=== PATIENT | female | born 2005 | race Caucasian/White ===

== ENCOUNTER 2025-04-28 09:04 | Outpatient (CLI) | payer OTHER, SELFPAY | END 2025-04-28 09:05 | disposition home or self-care (01) | LOC: NFLDREF 05-03 04:24 | PROVIDERS: Visit Provider Midwife | DX: Z34.93 Encounter for supervision of normal pregnancy, unspecified, third trimester (principal); Z3A.28 28 weeks gestation of pregnancy | CPT/HCPCS: 86592 ==

== ENCOUNTER 2025-06-19 10:56 | Outpatient (CLI) | payer OTHER, SELFPAY ==
--- NOTE | 2025-06-19 10:59 | W.PM.LAC.MC ---
Consult Note - Mom Date of Visit Date of visit: 06/19/25 Reason for consultation: Other ( consultation, EDC 07/18/25) Visit Code: Visit Patient's Information Phone number: [phone] : 1 Allergies No Known Drug Allergies Allergy (Verified 06/09/25 18:03) Mother's Medical History: Medical History (Updated 05/26/25 @ 18:52 by Yeimy Young CNM) History of cardiac murmur as a child ?Z87.898 - Personal history of other specified conditions (ICD-10) Work Plans: will return to work after 12 weeks Delivery Information Delivery type: Vaginal (planning a vaginal delivery) Past Experience Past Experience: No Assessments/Interventions Assessments/Interventions: Otto is here for a consultation to prepare for feeding her baby. She would like general information on , getting it started well, and questions answered re: pumping and bottling when she returns to work. topics discussed and questions answered: Mantilla Hour after and getting started with Importance of latch for milk transfer and less/minimal nipple pain What to expect the first few days of feeding Baby hunger cues What the feeding routine looks like Nipple care milk expression: pumping vs. hand expression Skin to skin Breast pump information Touched on returning to work Also discussed flat nipples and potential use of nipple shield Education provided: Early feeding cues to maximize timing of latching, Supply/demand nature of milk supply, Need for frequent stimulation/milk removal, Alternative feeding methods (SNS, cup, finger feeding, bottling), Use of nipple shield and Pumping for milk management Handouts Provided: colostrum expression How to pump more milk from the [employer] website Follow-Up Suggested follow up: Appointment as needed Time Spent Time spent with patient (min): 45 Meds Home Medications and Allergies Home Medications ?Medication ?Instructions ?Recorded ?Confirmed ?Type azelaic acid 15 % topical gel 1 applic topical BID 03/31/25 06/09/25 History vits 168-iron 27 mg-folic cap PO 03/31/25 06/09/25 History acid 800 mcg-omega3 235 mg capsule (One-A-Day -1) sulfacetamide sodium 8 %-sulfur 4 1 applic topical BID 03/31/25 06/09/25 History % topical cleanser Allergies Allergy/AdvReac Type Severity Reaction Status Date / Time No Known Drug Allergies Allergy Verified 06/09/25 18:03
== END 2025-06-19 10:57 | disposition home or self-care (01) ==
PROVIDERS: Visit Provider Obstetrics & Gynecology
DX: Z39.1 Encounter for care and examination of lactating mother (principal)
CPT/HCPCS: G0463

== ENCOUNTER 2025-06-23 19:24 | Outpatient (CLI) | payer OTHER, SELFPAY ==
[2025-06-24 22:03] LABS: Strep B DNA Probe Negative (Negative)
[2025-06-24 22:35] LABS: Strep B Susceptibility Needed? No
== END 2025-06-23 19:25 | disposition home or self-care (01) ==
LOC: NFLDREF 19:24
PROVIDERS: Visit Provider Advanced Practice Midwife
DX: Z34.93 Encounter for supervision of normal pregnancy, unspecified, third trimester (principal)
CPT/HCPCS: 87081; 87653

== ENCOUNTER 2025-07-09 14:38 | Inpatient (IN) | payer OTHER, SELFPAY ==
[2025-07-09] VITALS (18 sets, daily range): BP systolic 100–132; BP diastolic 59–79; PULSE 89–121; RESP 17–25; TEMP 36.8–37; O2SAT 97–98; BMI 34.0
[2025-07-09 12:21] LABS: Trichomonas No Trichomonas Seen (None Seen)
[2025-07-09 12:33] LABS: Amnisure Rom* Negative
--- NOTE | 2025-07-09 15:06 | W.PM.LDBA ---
Subjective History of Present Illness Date Seen: 07/09/25 Narrative: Otto is being admitted to Labor and Delivery for labor. She is a 20 year old at 38.5 weeks gestation. Her full history and physical was dictated by Sarika Young CNM on 06/30/25. Please see this for details. She reports contractions off and on since her membrane sweep on Sunday. Today had more mucus discharge and was concerned for decreased movement so came in for evaluation. Fetus has been active since arrival and she continued to contract while here with cervical change. Specific Issues/Plans G1 : Sanjay Francis from [facility] at 24.3 weeks gestation H&P complete 06/30/2025 by GABRIELLA Larry # Hx of heart murmur as a child, resolved Transfer from [facility] Labs 12/19/2024 Blood type: A+, antibody screen negative.??? Hgb: 12.6??? Platelets: 304??? Rubella: Non-immune?Offer PP?? Varicella: Non-immune?Offer PP RPR: non-reactive??? HBsAg: non-reactive??? Hep C: negative? HIV: negative??? UC: negative? HgbA1c: 4.7 Hemoglobin electrophoresis: Normal GC/Chlamydia: negative/negative??? Pap (01/22/2025): NILM??? Genetic screening: Panorama, Low risk? 1st trimester (12/17/2024): SIUP, tiny subchorionic hematoma measuring up to 1.3 cm. Measuring 8.6 with SAMIR 07/23/2025.?? Anatomy scan (02/25/2025): Incomplete survey of kidneys and spine. Otherwise Normal anatomy. EFW 68.9%ile. Anterior placenta, no previa. Follow-up for missing anatomy (03/26/2025): SIUP at 23.5; Normal spine and Kidney views. COVID: initial series, one booster, declined booster today. declined 06/23/2025 Flu: declined 06/23/2025 TDAP: 05/13/2025 RSV: 05/26/2025 32wk Mental Health: 05/26/2025 PHQ9=2 GAD7=0 OB - Problem Based A/P Additional Plan (1) 38 weeks gestation of : Status: Acute (2) Pain during labor: Status: Acute Plan Assessment:?? at 38.5 weeks gestation?? GBS negative? Patient is coping well with challenges of labor.?? Labor type: Spontaneous, Early labor? Category 1 FHR pattern.? complicated by: no OB problems hx of heart murmur as child, resolved Plan:?? ?Admit to L & D? IV access: NA Monitoring per policy: intermittent? Candidate for analgesia of choice.? Planning unmedicated labor for pain management Desires waterbirth.? Consent signed and Hep C negative Expectant management at this time ? Patient encouraged to reposition and ambulate to promote physiologic labor and . Anticipate ? Delivery/Labor/Induction Plan Plan: expectant management OB Exam Physical Exam Vital signs: Temp Pulse Resp BP Pulse Ox 98.5 F 121 H 24 132/75 97 07/09/25 14:00 07/09/25 14:01 07/09/25 14:00 07/09/25 14:01 07/09/25 14:01 Narrative: Vitals Reviewed Constitutional:? Alert and oriented x3 HEENT:? Normocephalic, atraumatic Neck:? Supple Lungs:? Clear to auscultation bilaterally Heart:? Regular rate and rhythm, no murmur, rub or gallop Abdomen:? Soft, nontender, and gravid. Vertex by Sebastien's, confirmed with cervical exam. Extremities:? No edema or erythema Cervix: 4.5 cm/90%/0 station/vertex per RN NST: 150 bpm/moderate variability/+accelerations/-decelerations/ strong contractions, Q 3-4 minutes Detailed Labor and Delivery Exam Patient Gravid: yes Fetus (Single) Amniotic Membrane Status: intact
--- NOTE | 2025-07-09 22:24 | W.PM.OB.MED ---
DS: Providers Provider Date Seen: 07/09/25 Date of admission: 07/09/25 14:38 Primary care physician: Not a Local Provider Admitting Clinician: Pratik Daugherty CNM Attending Physician on discharge: Pratik Daugherty CNM Date of Discharge: 07/09/25 DS: Diagnosis Discharge Diagnosis (1) 38 weeks gestation of : Status: Acute (2) Pain during labor: Status: Acute Discharge Plan Discharge Disposition: Home, Self-Care Date of Admission: 07/09/25 14:38 Attending Provider on Discharge: Pratik Daugherty Primary Care Provider: Provider,Not a Local Condition: Stable Anticipated Discharge Date/Time: 07/09/25 22:23 Discharge Medications: Continued azelaic acid 15 % gel 1 applic topical BID One-A-Day -1 27 mg iron- 800 mcg-235 mg capsule PO sulfacetamide sodium-sulfur 8-4 % cleanser 1 applic topical BID Rx Instructions: lather on wet skin; leave on for 10-20 seconds; rinse Discharge Orders: Discharge Order (Routine); Ordered 07/09/25 Ordered By: Pratik Daugherty Patient Education: OB Undelivered at 35 weeks IUP or more Additional Instructions: Keep routine OB appointment as scheduled Activity Level: Activity as Tolerated Discharge Diet: Regular Follow Up Appointments: [facility] [Provider Group] Provider,Not a Local [Primary Care Provider, Family Practice] Forms: [email or web address] Info Instructions Discharge Comments: Patient was discharged in stable condition. Hospital Course Course Hospital Course: Otto is a 20 year old at 38.5 weeks gestation who was admitted after making cervical change and thought to be in labor. She has made no further cervical change since admission and her contractions have decreased in intensity and frequency. She appears comfortable in bed is grimacing with some contractions but reports she is not as uncomfortable as when we originally admitted her. We discussed that she is likely having prodromal labor and recommended she go home at this time until contractions increase in intensity and frequency again. She was offered morphine and Vistaril for rest/pain. She declines morphine but is agreeable to Vistaril for help with sleep. Reviewed labor signs and reasons to return to the unit. Her is present and supportive. Labs Labs: Laboratory Tests 07/09/25 07/09/25 Range/Units 12:04 11:57 Membrane Rupture Negative Vaginal Trichomonas No Trichomonas Seen (None Seen) Vaginal Yeast No Yeast Seen (None Seen) Vaginal Clue Cells No Clue Cells Seen (None Seen) OB Problem List Additional Plan (1) 38 weeks gestation of : Status: Acute (2) Pain during labor: Status: Acute Plan at 38.5 weeks Prodromal labor Discharge home with Vistaril for sleep Return for routine OB visit in clinic or if labor, ROM, concerns with vaginal bleeding or decreased movement. DS: Summary Vital Signs Vital Signs: Vital Signs Temp Pulse Resp BP Pulse Ox 07/09/25 21:35 97 07/09/25 21:34 101 H 123/77 07/09/25 21:33 98.3 F 25 H 07/09/25 20:42 98 100/59 L 07/09/25 20:41 97 07/09/25 19:43 98.3 F 103 H 20 100/61 07/09/25 19:42 98 07/09/25 18:41 98.5 F 18 98 07/09/25 18:40 100 127/79 07/09/25 18:03 97 07/09/25 17:29 98.3 F 96 17 121/73 07/09/25 17:28 98 07/09/25 16:24 116 H 125/76 97 07/09/25 15:32 98.5 F 121 H 24 131/79 07/09/25 15:31 97 07/09/25 14:01 121 H 132/75 97 07/09/25 14:00 98.5 F 24 07/09/25 11:18 98.6 F 97 17 112/72 98 Discharge Examination General appearance: alert and in no apparent distress
--- NOTE | 2025-07-21 19:13 | PC.OBNST ---
NST Note NST Note Start: 07/09/25 11:11 Freq: ONCE Status: Cancelled Protocol: Document 07/09/25 23:30 VMM (Rec: 07/21/25 19:13 VMM [id number]) NST Note 1 Para (# of births) 0 EDC 07/18/25 Gestational Age In 40 Weeks & 3 Days Weeks & Days Patient Presented Contractions/cramping,Decreased movement with Complaint(s) of Other Complaints Patient came to the center with complaints of frequent contractions and decreased movement. The patient was negative for rupture. A reactive tracing was confirmed, and the patient was observed for labor. Patient was sent home with education regarding precautions to return to the center. Patient was discharged by direction of Gonzalez Daugherty CNM. Reactive Yes Appropriate for Yes Gestational Age FELICIA Bates, RN Date 07/09/25 Reactive Yes Appropriate for Yes Gestational Age FELICIA Barlow RNC Date 07/09/25 OB NST charge Yes Complete NST Note Yes via Write Note The provider's electronic signature indicates the NST is reactive/appropriate for gestational age. *Note to provider: If an addendum is required, open the patient's chart and click on the note under the Nurse/Allied Health tab.
== END 2025-07-09 22:32 | disposition home or self-care (01) | DRG 566 ==
LOC: OB OUT 14:39 → OB 14:39
PROVIDERS: Admitting Provider Advanced Practice Midwife; Visit Provider Advanced Practice Midwife
DX: O36.8130 Decreased fetal movements, third trimester, not applicable or unspecified (principal); O62.0 Primary inadequate contractions; Z3A.38 38 weeks gestation of pregnancy
CPT/HCPCS: 59025; 84112; 86592; 87210; A9270

== ENCOUNTER 2025-07-11 22:53 | Inpatient (IN) | payer OTHER, SELFPAY ==
[2025-07-11 19:30] VITALS: PULSE 107; O2SAT 96
[2025-07-11 19:34] VITALS: BP 123/80; PULSE 105; RESP 18; TEMP 37.1
--- NOTE | 2025-07-11 22:53 | P.LDBA_ITS ---
Subjective History of Present Illness Date Seen: 07/11/25 Narrative: Otto is being admitted to Labor and Delivery for elective induction of labor. She is a 20 year old at 39.0 weeks gestation. Her full history and physical was dictated by Sarika Young CNM on 06/30/25. Please see this for details. She has had prodromal labor for the last 3-4 days, arrived this evening with regular contractions about every 7 minutes but has made not cervical roll changer 2 hours. She was given the option of going home with MS and Vistaril tonight or staying and having an elective induction. She would like to stay and have AROM for induction. Aware she may also need IV Pitocin if she does not pro kamilah after AROM. Specific Issues/Plans G1 : Sanjay Francis from [facility] at 24.3 weeks gestation H&P complete 06/30/2025 by GABRIELLA Larry # Hx of heart murmur as a child, resolved Transfer from [facility] Labs 12/19/2024 Blood type: A+, antibody screen negative.??? Hgb: 12.6??? Platelets: 304??? Rubella: Non-immune?Offer PP?? Varicella: Non-immune?Offer PP RPR: non-reactive??? HBsAg: non-reactive??? Hep C: negative? HIV: negative??? UC: negative? HgbA1c: 4.7 Hemoglobin electrophoresis: Normal GC/Chlamydia: negative/negative??? Pap (01/22/2025): NILM??? Genetic screening: Panorama, Low risk? 1st trimester (12/17/2024): SIUP, tiny subchorionic hematoma measuring up to 1.3 cm. Measuring 8.6 with SAMIR 07/23/2025.?? Anatomy scan (02/25/2025): Incomplete survey of kidneys and spine. Otherwise Normal anatomy. EFW 68.9%ile. Anterior placenta, no previa. Follow-up for missing anatomy (03/26/2025): SIUP at 23.5; Normal spine and Kidney views. COVID: initial series, one booster, declined booster today. declined 06/23/2025 Flu: declined 06/23/2025 TDAP: 05/13/2025 RSV: 05/26/2025 32wk Mental Health: 05/26/2025 PHQ9=2 GAD7=0 OB - Problem Based A/P Additional Plan (1) Encounter for induction of labor: Status: Acute (2) Pain during labor: Status: Acute (3) 39 weeks gestation of : Status: Acute Plan Assessment:?? at 39.0 weeks gestation?? GBS negative? Patient is coping well with challenges of labor.?? Labor type: Induced, Early labor? Category 1 FHR pattern.? complicated by: hx of heart murmur as child, resolved Npo OB problems Plan:?? * ?Admit to L & D? * IV access: NA * Monitoring per policy: intermittent? * Candidate for analgesia of choice.? Open to all options for pain management * Desires waterbirth.? Consent signed and Hep C negative * Reviewed risks and benefits of IOL with AROM and reviewed Pitocin if needed as well? * Patient encouraged to reposition and ambulate to promote physiologic labor and . * Anticipate ? Delivery/Labor/Induction Plan Plan: induction Induction method: AROM OB Exam Physical Exam Vital signs: Temp Pulse Resp BP Pulse Ox 98.8 F 105 H 18 123/80 96 07/11/25 19:34 07/11/25 19:34 07/11/25 19:34 07/11/25 19:34 07/11/25 19:30 Narrative: Vitals Reviewed Constitutional:? Alert and oriented x3 HEENT:? Normocephalic, atraumatic Lungs:? Clear to auscultation bilaterally Heart:? Regular rate and rhythm, no murmur, rub or gallop Abdomen:? Soft, nontender, and gravid. Vertex by Sebastien's, confirmed with cervical exam. Extremities:? No edema or erythema Cervix: 4 cm/90%/0 station/vertex per RN NST: 150 bpm/moderate variability/+accelerations/-decelerations/moderate contractions Detailed Labor and Delivery Exam Patient Gravid: yes
[2025-07-11 23:17] VITALS: BP 137/89; PULSE 108; RESP 16; TEMP 36.9
[2025-07-11 23:19] VITALS: PULSE 109; O2SAT 97
[2025-07-11 23:52] VITALS: BMI 33.1
[2025-07-12] VITALS (64 sets, daily range): BP systolic 72–145; BP diastolic 32–85; PULSE 89–146; RESP 16–20; TEMP 36.6–37.4; O2SAT 96–100
[2025-07-12] MEDS: LACTATED RINGERS 1000 ML 1,000 ML 1125 ML IV (01:15)
[2025-07-12 01:24] LABS: Hematocrit* 34.6 % (33.0-51.0); Hemoglobin* 11.7 gm/dL (12.0-16.0); Lymphocytes Absolute Auto 1.90 K/uL (0.90-2.90); Mean Corpuscular HGB Conc 34 gm/dL (32-36); Mean Corpuscular Hemoglobin 30 pg (26-34); Mean Corpuscular Volume 89 fL (80-100); Red Blood Count* 3.90 m/uL (4.00-5.20); White Blood Count* 14.45 K/uL (4.50-11.00)
[2025-07-12 01:25] LABS: Slide Review Reflex No
--- NOTE | 2025-07-12 01:52 | PM.OBPNL ---
Subjective Date Seen: 07/12/25 Narrative: ?Otto is coping with labor pain/contractions. ?Sanjay is with her for support. ?She recently got into the waterbirth tub for comfort. While getting in the RN was having difficulty differentiating between maternal and heart rate so she placed her back on the EFM. FHR noted to be in the 170's for the entire time she was in the tub and Otto began to ask about other pain options. She was asked to get out of the tub and once she did baseline has now [id number]'s. She has at this time elected to have an epidural placed for pain relief. Objective Exam: VSS, afebrile General Appearance:? Calm, cooperative. ?No acute distress. ? Psychiatric Exam: Alert and oriented, appropriate affect Abdomen: Gravid Ctx: ?Q 2 min apart. ? ? ?Strong FHTs: ?Baseline: 150. ? ? Variability: moderate. ?Accels: -. ? ?Decels: ?-. SVE: 6/100/+1 Membranes: ?AROM clear Vital Signs: Last Vital Signs Temp 98.0 F 07/12/25 01:15 SENIOR TECHNICAL SUPPORT ANALYST Pulse 123 H 07/12/25 01:30 SENIOR TECHNICAL SUPPORT ANALYST Resp 20 07/12/25 01:30 SENIOR TECHNICAL SUPPORT ANALYST BP 125/76 07/12/25 01:30 SENIOR TECHNICAL SUPPORT ANALYST Pulse Ox 97 07/11/25 23:19 Assessment Assessment: induction ongoing Amniotic Membrane Status: AROM Plan Plan: Assessment:?? at 39.1 weeks gestation?? GBS negative Patient is coping with challenges of labor.?? Labor type: Induced, Early labor? Category 2 FHR pattern.? complicated by: none Labor complicated by: prodromal labor? Plan:?? IV to be placed and labs drawn in preparation for epidural placement Continue with routine intrapartum cares as ordered.?? Patient encouraged to move and change positions to promote physiologic labor and .?? Nonpharmacologic comfort measures per patient preference. Candidate for analgesia of choice, has requested epidural Anticipate progress to NVD. ?
[2025-07-12] MEDS: LIDOCAINE 2% (PF) 5 ML VIAL EPIDURAL (02:10)
[2025-07-12] MEDS: ROPIVACAINE 0.2% 100 ml 100 ML 10 MG EPIDURAL (02:15)
--- NOTE | 2025-07-12 02:18 | P.ANBPRC_ITS ---
[facility] Medical History History of cardiac murmur as a child ?Z87.898 - Personal history of other specified conditions (ICD-10) Social History (Updated 06/30/25 @ 18:45 by Yeimy Young CNM) Narrative: SOCIAL??? Education: College? Work: Starting, Physical Therapy Partner: [employer] Lives with: ??? Pets: none??? Abuse: Denies past/present; partner Special Diet: Denies??? Ok with a blood transfusion: yes??? Culture or nondenominational beliefs: denies? RISK FACTORS??? Exercise Times/wk: Cardio and strengthening, 5x per week??? Depression/Anxiety: Denies?? Seat Belt Use: Routinely?? Smoking: Denies past/present??? Alcohol/day: Denies while ; occasionally?? Caffeine: denies Drug Use: Denies past/present??? MRSA: Denies??? What is your current living situation?: I presently have a place to live Problems where you live: no known problems In the past 12 months, utilities in danger of being shut off: no In past 12 months, lack of transportation kept you from medical appts, meetings, work, or getting things needed for daily living: no In the past 12 mos, have been you worried that your food would run out before you had money to buy more?: never true In the past 12 mos, the food you bought just didn't last and you didn't have money to buy more?: never true Smoking Status: Never smoker How often does anyone, including family, friends and others, physically hurt you : never How often does anyone, including family, friends and others, insult or talk down to you: never How often does anyone, including family, friends and others, threaten you with harm: never How often does anyone, including family, friends and others, scream or curse at you: never Meds Home Medications and Allergies Home Medications ?Medication ?Instructions ?Recorded ?Confirmed ?Type azelaic acid 15 % topical gel 1 applic topical BID 07/11/25 History vits 168-iron 27 mg-folic 1 cap PO DAILY 03/1107/11/25 History acid 800 mcg-omega3 235 mg capsule (One-A-Day -1) sulfacetamide sodium 8 %-sulfur 4 1 applic topical BID 03/31/25 07/11/25 History % topical cleanser Allergies Allergy/AdvReac Type Severity Reaction Status Date / Time No Known Drug Allergies Allergy Verified 07/11/25 20:32 Results Labs Labs: Laboratory Results - last 24 hr 07/12/25 01:13 [employer] WBC 14.45 H RBC 3.90 L Hgb 11.7 L Hct 34.6 MCV 89 MCH 30 MCHC 34 Plt Count 259 Neut % (Auto) 81.2 H Lymph % (Auto) 13.1 L [place] % (Auto) 4.9 Eos % (Auto) 0.3 Baso % (Auto) 0.2 Neut # (Auto) 11.70 H Lymph # (Auto) 1.90 [place] # (Auto) 0.70 Eos # (Auto) 0.00 Baso # (Auto) 0.00 Vital Signs Vital Signs: Last Vital Signs Temp 98.0 F 07/12/25 01:15 CDT Pulse 101 H 07/12/25 02:16 Resp 20 07/12/25 01:30 CDT BP 133/70 07/12/25 02:16 Pulse Ox 100 07/12/25 02:17 Weight: 90.356 kg Height: 165.1 cm Anesthesia Procedures Epidural Insertion Patient Location: OB Start Time: 01:45 Stop Time: 02:30 Start Date: 07/12/25 Stop Date: 07/12/25 Reason for Block: primary anesthetic Patient Position: sitting Performed By: Lyle Cruz Preanesthetic Checklist: IV checked, risks and benefits discussed, surgical consent, monitors and equipment checked, pre-op evaluation, timeout performed and anesthesia consent Prep: chlorhexidine gluconate Monitoring: blood pressure monitoring, nuclear monitoring technician, continuous pulse oximetry and heart rate Approach: midline Vertebral Space: lumbar (1-5) Needle Type: Tuohy needle Injection Technique: continuous catheter (catheter) Needle gauge: 17 Needle Length (cm): 10 cm Needle Insertion Depth (cm): 6 Catheter Gauge: 19 Catheter Type: multi-orifice Catheter at skin depth (cm): 13 Test Dose Result: negative and lidocaine 1.5% with epinephrine 1 to 200,000
[2025-07-12] MEDS: LACTATED RINGERS 1000 ML 1,000 ML 125 ML IV ×2 (02:41→06:22)
[2025-07-12] MEDS: PHENYLEPHRINE 100 MCG/ML SYRINGE IVP (05:02)
--- NOTE | 2025-07-12 07:37 | PM.OBPNL ---
Subjective Date Seen: 07/12/25 Narrative: ?Otto is coping well with labor pain/contractions. ?Sanjay is with her for support. ?She slept overnight once her epidural was placed and this morning on exam she is complete. Currently pushing well, anticipate soon. She had a low grade temp this morning temp max 99.4F ? Objective Exam: VSS, afebrile General Appearance:? Calm, cooperative. ?No acute distress. ? Psychiatric Exam: Alert and oriented, appropriate affect Abdomen: Gravid Ctx: ?Q 1-3 min apart. ? ? ?Strong FHTs: ?Baseline: 145. ? ? Variability: mod. ?Accels: -. ? ?Decels: ?variables. SVE: /+2 Membranes: ?AROM clear fluid Vital Signs: Last Vital Signs Temp 99.1 F 07/12/25 07:00 Pulse 117 H 07/12/25 07:34 Resp 16 07/12/25 07:00 BP 107/57 L 07/12/25 07:34 Pulse Ox 100 07/12/25 02:27 Assessment Amniotic Membrane Status: AROM Plan Plan: Assessment:?? at 39.1 weeks gestation?? GBS negative Patient is coping 23ll with challenges of labor.?? Labor type: Induced, Active labor? Category 2 FHR pattern.? complicated by: none Labor complicated by: prodromal labor prior to active? Plan:?? Continue with routine intrapartum cares as ordered.?? Patient encouraged to move and change positions to promote physiologic labor and .?? Nonpharmacologic comfort measures per patient preference. Candidate for analgesia of choice if desired. Epidural infusing per anesthesia Anticipate progress to NVD. ?
--- NOTE | 2025-07-12 09:30 | W.PM.OBVAGDE ---
OB Procedure Vag Delivery Mother Details Mother Details: The patient is a 20 year-old, 1, Para 0, admitted on 07/11/25 at 39.0 weeks gestation. : 1 Para: 1 Weeks Gestation: 39.1 Admission Date: 07/11/25 Additional Details Amniotic Membrane Status: AROM Amniotic Membrane Rupture Date: 07/11/25 Amniotic Membrane Rupture Time: 23:23 Amniotic Membrane Fluid Description: Clear Analgesia/Anesthesia Type: Epidural Waterbirth: No Intrapartal Events: Labor Induction Induction Method: AROM Labor Onset: 01:45 Complete: 07:00 Pushin:06 Heart: heart tones during second stage were Category 2, FHR 145, moderate variability with occasional variable decelerations Delivery Details Delivery Date: 07/12/25 Delivery Time: 08:37 Route of delivery: Infant Gender: Male Infant Viability: Alive; Heart Rate Present Position at Delivery: OA Delivery Details: 20?y.o?at 39.1 weeks.? Otto was admitted for elective induction after 3 days of prodromal labor at home. She had AROM of clear fluid on 07/11/25 at 2323. She was planning a waterbirth and at one point got in the labor tub but while she was in the water the FHR was tachycardic in the 170's so she was asked to get out. She then elected to get an epidural which gave her good relief. She was checked this morning after resting for a few hours and found to be complete at +2 station. ? She became complete at 0700.??She pushed in right and left tilt positions effectively.? Spontaneous vaginal delivery at 0837 of?a viable?male infant.??Delivered in vertex OA position.??Shoulders delivered easily.? Spontaneous cry noted.?? placed on maternal abdomen.??Cord?was clamped and cut after a 5+ minute delay.??Nose and mouth were bulb suctioned.? Shoulder dystocia: no? Nuchal cord: no? Meconium stained?fluid: no? Water : no? ? ? 9 at 1 minute and 9 at 5 minutes.? Weight is pending. ? Placenta delivered spontaneously and?complete?at 0847 with a?3 vessel?cord.?? Bleeding controlled with fundal massage and?pitocin?for AMTSL.? ? Lacerations:? Left periurethral tear, repaired with 3-0?vicryl.?? ? Bleeding?post delivery?was: minimal. ?The fundus was firm to palpation.? Blood loss: 100?mL.? Blood loss measurement type: ? EBL? ? Sponge,?lap?and needles counts are correct.? Mother and infant were stable after delivery.? 1 Minute Interval Total Score: 9 5 Minute Interval Total Score: 9 Additional Details Shoulder Dystocia: No Placenta Delivery Time: 08:47 Placental Delivery Description: Spontaneous Delivery repair: Vicryl Procedure Done: Global Blood Loss: 100 Laceration: Periurethral - 1st Degree Blood Loss Measurement Type: EBL Sponge/Need Count Correct: Yes Cord Vessel Description: 3 Vessels Event Summary Status: Mother and infant were stable after delivery. Disposition: floor
[2025-07-12] MEDS: IBUPROFEN 600 MG TABLET PO ×2 (17:19→23:27)
[2025-07-12] MEDS: ACETAMINOPHEN 500 MG TABLET 1000 MG PO (20:42)
[2025-07-13 01:55] VITALS: BP 106/71; PULSE 93; RESP 18; TEMP 36.4; O2SAT 97
[2025-07-13] MEDS: ACETAMINOPHEN 500 MG TABLET 1000 MG PO (02:16)
[2025-07-13 05:43] VITALS: BP 104/66; PULSE 86; RESP 16; TEMP 36.6; O2SAT 97
[2025-07-13] MEDS: IBUPROFEN 600 MG TABLET PO ×2 (05:52→11:42)
[2025-07-13 06:50] LABS: Hemoglobin* 10.7 gm/dL (12.0-16.0)
[2025-07-13] MEDS: MEASLES,MUMPS,RUBELLA VACC/PF 1 DOSE INJ 1 EACH SUBCUT (07:52)
[2025-07-13 07:59] VITALS: BP 110/72; PULSE 103; RESP 16; TEMP 36.7; O2SAT 97
[2025-07-13] MEDS: DOCUSATE SODIUM 100 MG CAPSULE PO (08:03)
--- NOTE | 2025-07-13 08:09 | P.DS_ITS ---
DS: Providers Provider Date Seen: 07/13/25 Date of admission: 07/11/25 22:53 Primary care physician: Not a Local Provider Admitting Clinician: Pratik Daugherty CNM Attending Physician on discharge: Amy QUIROZ Date of Discharge: 07/13/25 Exam Narrative: Exam Narrative: GENERAL APPEARANCE:? normal affect, alert, no distress MOOD:? appropriate CHEST:? clear to auscultation HEART:? regular rate and rhythm ABDOMEN:? soft, non-tender the uterine fundus is 1 finger breasdth below, Midline and is appropriate for the stage of recovery. PERINEUM:? minimal alice of the perineum, there is a Perineal Laceration that is well approximated, with no abnormal erythema or discharge EXTREMITIES:? normal and no edema Const: Vital Signs, click to edit/add: Vital Signs - 24 hr 07/12/25 08:18 07/12/25 08:48 07/12/25 09:03 Temperature Pulse Rate 146 H 125 H 146 H Pulse Rate [Pulse Oximeter] Respiratory Rate Blood Pressure 128/56 L 115/57 L 72/32 L Blood Pressure [Ri ght Arm] Pulse Oximetry Oxygen Delivery Me thod 07/12/25 09:09 07/12/25 09:18 07/12/25 09:33 Temperature Pulse Rate 117 H 114 H 107 H Pulse Rate [Pulse Oximeter] Respiratory Rate Blood Pressure 118/62 113/73 113/67 Blood Pressure [Ri ght Arm] Pulse Oximetry Oxygen Delivery Me thod 07/12/25 09:33 07/12/25 09:48 07/12/25 10:03 Temperature 98.6 F Pulse Rate 114 H 110 H Pulse Rate [Pulse Oximeter] Respiratory Rate Blood Pressure 116/68 118/73 Blood Pressure [Ri ght Arm] Pulse Oximetry Oxygen Delivery Me thod 07/12/25 10:18 07/12/25 10:33 07/12/25 12:30 Temperature 98.3 F Pulse Rate 110 H 115 H Pulse Rate [Pulse Oximeter] 109 H Respiratory Rate 16 Blood Pressure 112/58 L 111/61 Blood Pressure [Ri ght Arm] 115/72 Pulse Oximetry 96 Oxygen Delivery Me thod Room Air 07/12/25 16:15 07/12/25 20:12 07/13/25 01:55 Temperature 98.7 F 98.4 F 97.5 F L Pulse Rate Pulse Rate [Pulse Oximeter] 108 H 105 H 93 Respiratory Rate 16 16 18 Blood Pressure Blood Pressure [Ri ght Arm] 120/52 L 106/68 106/71 Pulse Oximetry 97 96 97 Oxygen Delivery Me thod Room Air Room Air Room Air 07/13/25 05:43 07/13/25 07:59 Temperature 97.9 F 98.0 F Pulse Rate Pulse Rate [Pulse Oximeter] 86 103 H Respiratory Rate 16 16 Blood Pressure Blood Pressure [Ri ght Arm] 104/66 110/72 Pulse Oximetry 97 Oxygen Delivery Me thod Room Air Room Air OB - DS: Summary Hospital Course Hospital Course: Otto is a 20?y.o. G 1 P 1001 who was admitted to [facility] for elective IOL at 39 0/7.??She had a NVD that was uncomplicated. The patient feels well.??The pain is well controlled with current medications.??She has no new complaints.??She is breast?feeding?and reports things are going well. the patient has done well.??Vitals have been stable.??She has?remained?afebrile.??Has a good appetite,?is?tolerating a general diet.??She is voiding without difficulty.??She is passing gas and has not had a bowel movement.??She is ambulating and denies any dizziness.??Has?small?amount of rubra lochia. She is unsure what she wants to use for prevention.? ?? Problems: none? ?? plan:? Discharge?home with baby.? Follow up in 2 weeks and?6 weeks.? , may see if needed? Hgb 10.7. ? Peripartum Data delivery method: Vaginal Laceration description: Perineal - 1st Degree Episiotomy description: None complications: none [place] Gender: Male Infant Discharge Plan: Home Status at Discharge Functional status at discharge: independent ambulation Overall status at discharge: patient is progressing back to baseline Time Spent with Patient Time attestation: Total time spent providing and/or coordinating discharge services: Time spent: Less than 30 minutes Discharge Plan Discharge Disposition: Home, Self-Care Date of Admission: 07/11/25 22:53 Attending Provider on Discharge: Cayla Friedman Primary Care Provider: Provider,Not a Local Condition: Stable Anticipated Discharge Date/Time: 07/13/25 11:47 Discharge Medications: New docusate sodium 100 mg Capsule 100 mg PO DAILY Qty: 60 0RF Continued azelaic acid 15 % gel 1 applic topical BID One-A-Day -1 27 mg iron- 800 mcg-235 mg capsule 1 cap PO DAILY sulfacetamide sodium-sulfur 8-4 % cleanser 1 applic topical BID Rx Instructions: lather on wet skin; leave on for 10-20 seconds; rinse Discharge Orders: Discharge Order (Routine); Ordered 07/13/25 Ordered By: Cayla Friedman Patient Education: OB Over the Counter Medication Information, OB Vaginal/Breast Feeding Additional Instructions: Discharge instructions were reviewed with the patient including signs and symptoms of infection and home going medications Nothing vaginally for 6 weeks: no tampons or intercourse Do not drive while taking narcotic pain medication(s) Off Work or School for 6 weeks Symptoms to report to doctor: * Bleeding that saturates more than one pad per hour * Passing clots larger than the size of a golf ball * Pain not relieved by prescribed medication * Fever above 100.4 degrees Fahrenheit * A foul vaginal odor * Difficulty in emotions, mood, and functions * Thoughts of hurting yourself and/or * Painful, reddened area in your breast * Any drainage, redness, or tenderness in your IV/epidural site * Severe headache that doesn't improve after taking medications * Changes in vision, including temporary loss of vision, blurred vision, and/or light sensitivity * Upper abdominal pain (usually under ribs on the right side) * Decrease in urination or painful, frequent urinating * Chest pain * Shortness of breath * Tenderness or pain with redness and/swelling in the calf(s) of your leg 2-week visit: discuss infant feeding concerns, review control options and screen for anxiety/depression. 6-week visit for an annual exam. consultation services are available to all mothers and babies for the first year after delivery.? To make an appointment, please call [phone]. Activity Level: Activity as Tolerated and No strenuous activity Discharge Diet: Regular Follow Up Appointments: Provider,Not a Local [Primary Care Provider, Family Practice] Forms: [employer] Info Instructions
--- NOTE | 2025-07-13 14:04 | PM.ANPOST ---
Post Anesthesia Note Post Anesthesia Note Patient seen: Inpatient Respiratory Status: adequate Cardiovascular Status: adequate Mental Status: baseline Pain: adequate Temp: baseline Anesthetic awareness: N/A Complications: none Follow care: none
== END 2025-07-13 12:19 | disposition home or self-care (01) | DRG 560 ==
LOC: OB OUT 22:53 → OB 22:53
PROVIDERS: Admitting Provider Advanced Practice Midwife; Visit Provider Advanced Practice Midwife
DX: O62.0 Primary inadequate contractions (principal); O70.0 First degree perineal laceration during delivery; Z3A.39 39 weeks gestation of pregnancy; Z37.0 Single live birth
CPT/HCPCS: 01967; 36415; 85018; 85025; 86592; 86850; 86900; 86901; A9270; J2795; J7120